=== PATIENT | male | born 1955 | race Caucasian/White ===

== ENCOUNTER 2022-04-07 11:27 | Emergency (ER) | payer OTHER, SELFPAY ==
[2022-04-07 11:50] VITALS: BP 133/81; PULSE 78; RESP 18; TEMP 36.8; O2SAT 100
--- NOTE | 2022-04-07 12:50 | ED.GENADULT ---
HPI - General Adult General Chief complaint: Skin/Abscess/Foreign Body Stated complaint: Rash on left side of face Source: patient Mode of arrival: ambulatory Limitations: no limitations History of Present Illness HPI narrative: Patient presents for evaluation of pruritic rash to the bilateral infraorbital regions since yesterday. The day prior he had been working out in the yard. 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 He states several weeks ago he was given a five day course of prednisone for suspected allergic response to poison cornelius. His PCP called it in for him. He states his symptoms did improve with medication. He has taken some benadryl since time of symptom onset. No new lotions, soaps, detergents or topical products. No fever, chills, nausea, vomiting, difficulty breathing or swallowing. No known personal or family hx of autoimmune disease. Denies any joint pain, fatigue or weakness. He started atorvastatin a few weeks ago. Related Data Home Medications Medication Instructions Recorded Confirmed atorvastatin 40 mg tablet mg 04/07/22 escitalopram oxalate 20 mg tablet mg 04/07/22 losartan 100 tablet 04/07/22 mg-hydrochlorothiazide 25 mg tablet Allergies Allergy/AdvReac Type Severity Reaction Status Date / Time No Known Allergies Allergy Verified 04/07/22 12:04 Review of Systems Review of Systems: CONSTITUTIONAL: Denies fever, chills, or sweats. EYES: Denies visual changes, redness, or discharge. ENT: Denies rhinorrhea, congestion, sore throat, or otalgia. CARDIOVASCULAR: Denies chest pain, palpitations, or edema. RESPIRATORY: Denies cough or dyspnea. GASTROINTESTINAL: Denies abdominal pain, nausea, vomiting, or diarrhea. GENITOURINARY: Denies dysuria or hematuria. SKIN: Reports pruritic rash to bilateral infraorbital regions. MUSCULOSKELETAL: Denies back pain, joint pain, or myalgia. NEUROLOGIC: Denies headache, numbness, dizziness, or weakness. PSYCHIATRIC: Denies anxiety or depression. [facility] Past Medical History Medical History Anxiety Hyperlipidemia Surgical History Surgical History History of Achilles tendon repair Family History Family History Mother Cancer Social History Social History Alcohol intake: current Alcohol use details: social Substance use: never Living arrangements: with family Occupation/Education: retired Gender identity (if verbalized by the patient): Male Sexual Orientation (if Verbalized by the Patient): Straight or Heterosexual Spiritual care concerns: No Exam Narrative: GENERAL: Well-appearing, well-nourished, and in no acute distress. HEAD: Normocephalic, atraumatic. EYES: PERRLA and EOMI. ENT: Nares clear, no rhinorrhea or epistaxis. Mucous membranes moist. Oropharynx without tonsillar hypertrophy exudate or other lesions. Bilateral TMs pearly dias nonbulging NECK: Supple. No adenopathy or masses. No carotid bruits or JVD CHEST: Clear to auscultation. No respiratory distress. No wheezes rales or rhonchi HEART: Regular rate and rhythm. No murmur heard. Normal peripheral pulses. ABDOMEN: Soft, nontender, nondistended, normal active bowel sounds. EXTREMITIES: Normal range of motion. No edema. SKIN: Approximately 3 cm area of annular erythema in right infraorbital region with approximately 2.5 cm area of annular erythema to the left infraorbital region. NEURO: No focal deficits. Alert and oriented x3. PSYCH: Normal mood and affect. Course Course Emergency Course: This is a 66-year-old male presenting for evaluation of a pruritic rash. He was recently treated for dermatological manifestations of suspected poison cornelius exposure. He responded well to steroid burst. This co
[2022-04-07] MEDS: methylPREDNISolone SOD SUCC 125 MG VIAL IM (12:54)
== END 2022-04-07 13:15 | disposition home or self-care (01) ==
PROVIDERS: Emergency Provider Nurse Practitioner; PCP Family Medicine
DX: R21 Rash and other nonspecific skin eruption (principal); F41.9 Anxiety disorder, unspecified; E78.5 Hyperlipidemia, unspecified
CPT/HCPCS: 96372; 99203; G0463; J2930